=== PATIENT | female | born 1995 | race Caucasian/White ===

== ENCOUNTER 2020-07-23 19:10 | Emergency (ER) | payer MEDICAID ==
[2020-07-23] MEDS ORDERED: Diphtheria,Pertussis(Acell),Tetanus Vaccine 0.5 ML SDV IM ONE (19:28)
[2020-07-23] MEDS ORDERED: Bacitracin Oint 1 GM U/D Packet TOP ONE (19:29)
--- NOTE | 2020-07-23 19:35 | EDM.PDOC ---
ED HPI GENERAL MEDICAL PROBLEM - General Chief Complaint: Laceration Stated Complaint: R FOOT INJURY Time Seen by Provider: 07/23/20 19:29 Source of Information: Reports: Patient History Limitations: Reports: No Limitations - History of Present Illness INITIAL COMMENTS - FREE TEXT/NARRATIVE: pt stepped on a jar and it broke and she ended up with a cut on the bottom of the rt foot. She did have alot of bleeding right after it happened. Onset: Today, Sudden Duration: Hour(s): Location: Reports: Lower Extremity, Right Associated Symptoms: Reports: No Other Symptoms - Related Data Allergies Allergy/AdvReac Type Severity Reaction Status Date / Time No Known Allergies Allergy Verified 05/26/14 17:11 Home Meds: Home Meds Citalopram [Citalopram Hbr] 20 mg PO DAILY 05/26/14 [History] Desogestrel-Ethinyl Estradiol [Isibloom 28 Day Tablet] 1 tab PO DAILY 07/23/20 [History] Prazosin HCl [Prazosin] 1 mg PO DAILY 07/23/20 [History] hydrOXYzine HCL [hydrOXYzine] 25 mg PO ASDIRECTED 07/23/20 [History] Social & Family History - Tobacco Use Smoking Status *Q: Never Smoker - Caffeine Use Caffeine Use: Reports: Coffee, Soda - Recreational Drug Use Recreational Drug Use: No ED ROS GENERAL - Review of Systems Review Of Systems: See Below Constitutional: Reports: No Symptoms HEENT: Reports: No Symptoms Respiratory: Reports: No Symptoms Cardiovascular: Reports: No Symptoms Endocrine: Reports: Polyuria GI/Abdominal: Reports: No Symptoms : Reports: No Symptoms Musculoskeletal: Reports: Other (pt has a 1/2 inch laceration on the bottom of the rt foot. ) Skin: Reports: Other (laceration bottom rt foot. ) Neurological: Reports: No Symptoms ED EXAM, SKIN/RASH Exam: See Below Text/Narrative:: pt arrived with a 1/2 inch laceration to the bottom of the rt foot. This is deep to the subq. She did do a fair amount of bleeding at first. Exam Limited By: No Limitations General Appearance: Alert, Anxious Extremities: Other ( Pt has a 1 inch laceration to the bottom of the rt foot. ) Course - Vital Signs Last Recorded V/S: Last Vital Signs Temp 35.9 C L 09/24/20 19:21 Pulse 96 07/23/20 19:21 Resp 16 07/23/20 19:21 BP 166/104 H 07/23/20 19:21 Pulse Ox 99 07/23/20 19:21 - Orders/Labs/Meds Orders: Active Orders 24 hr Category Date Time Status Vaccines to be Administered [RC] PER UNIT ROUTINE Care 07/23/20 19:28 Active Meds: Medications Discontinued Medications Generic Name Dose Route Start Last Admin Trade Name Latha PRN Reason Stop Dose Admin Bacitracin 1 dose 07/23/20 19:29 07/23/20 19:34 Bacitracin Oint 1 Gm TOP 07/23/20 19:30 1 dose ONETIME ONE Administration Diphtheria/Tetanus/Acell Pertussis 0.5 ml 07/23/20 19:28 07/23/20 19:34 Adacel IM 07/23/20 19:29 0.5 ml .ONCE ONE Administration Lidocaine HCl 5 ml 07/23/20 19:29 07/23/20 19:35 Xylocaine-Mpf 1% INJECT 07/23/20 19:30 5 ml ONETIME ONE Administration - Re-Assessments/Exams Free Text/Narrative Re-Assessment/Exam: 07/23/20 19:54 the wound was cleaned well and infiltrated with lidocaine. The wound was closed with 5-0 prolene. It was dressed with bacatracin . dtap was given Departure - Departure Time of Disposition: 19:50 Disposition: Home, Self-Care 01 Condition: Fair Clinical Impression: Laceration - Discharge Information Referrals: PCP,None [Primary Care Provider] - Forms: ED Department Discharge Care Plan Goals: keep dry, suture removal in 8 days. pt was boostered with a tdap. Sepsis Event Note (ED) - Evaluation Sepsis Screening Result: No Definite Risk - Focused Exam Vital Signs: Vital Signs Temp Pulse Resp BP Pulse Ox 07/23/20 19:21 35.9 C L 96 16 166/104 H 99 07/23/20 19:20 35.9 C L 96 16 166/104 H 99 - My Orders Last 24 Hours: My Active Orders 07/23/20 19:28 Vaccines to be Administered [RC] PER UNIT ROUTINE - Assessment/Plan Last 24 Hours: My Active Orders 07/23/20 19:28 Vaccines to be Administered [RC] PER UNIT ROUTINE
== END 2020-07-23 19:58 | disposition home or self-care (01) ==
LOC: JP.ED 19:10
DX: S91.311A Laceration without foreign body, right foot, initial encounter (principal); Z23 Encounter for immunization; W26.8XXA Contact with other sharp object(s), not elsewhere classified, initial encounter
CPT/HCPCS: 12001; 90471; 90715; 99282; J2001

== ENCOUNTER 2023-03-19 02:46 | Emergency (ER) | payer MEDICAID ==
[2023-03-19 03:13] LABS: HEMATOCRIT 37.6 % (34.3-46.0); MEAN CORPUSCULAR HEMOGLOBIN 29.6 pg (31.6-35.5); MEAN CORPUSCULAR HGB CONC 34.6 g/dL (31.6-35.5); MEAN CORPUSCULAR VOLUME 85.6 fL (81.4-99.0); RED BLOOD CELL COUNT 4.39 M/uL (3.77-5.24); WHITE BLOOD CELL COUNT,WBC 13.2 K/uL (3.2-11.0)
== END 2023-03-19 04:09 | disposition home or self-care (01) ==
LOC: JP.ED 02:46
DX: O20.9 Hemorrhage in early pregnancy, unspecified (principal); O99.281 Endocrine, nutritional and metabolic diseases complicating pregnancy, first trimester; E03.9 Hypothyroidism, unspecified; Z79.899 Other long term (current) drug therapy; Z3A.01 Less than 8 weeks gestation of pregnancy
CPT/HCPCS: 36415; 84702; 85027; 99284

== ENCOUNTER 2023-04-01 21:06 | Emergency (ER) | payer MEDICAID | END 2023-04-01 23:52 | disposition home or self-care (01) | LOC: JP.ED 21:06 | DX: O99.891 Other specified diseases and conditions complicating pregnancy (principal); R60.0 Localized edema; O99.281 Endocrine, nutritional and metabolic diseases complicating pregnancy, first trimester; E03.9 Hypothyroidism, unspecified; Z3A.12 12 weeks gestation of pregnancy; Z79.899 Other long term (current) drug therapy | CPT/HCPCS: 93971-RT; 99283 ==

== ENCOUNTER 2023-10-01 14:31 | Emergency (ER) | payer MEDICAID | END 2023-10-01 16:33 | disposition home or self-care (01) | LOC: JP.ED 14:31 | DX: L03.311 Cellulitis of abdominal wall (principal); E03.9 Hypothyroidism, unspecified; Z79.899 Other long term (current) drug therapy | CPT/HCPCS: 99283 ==

== ENCOUNTER 2025-02-22 19:53 | Emergency (ER) | payer MEDICAID ==
[2025-02-22] MEDS: predniSONE 20 MG Tab PO ONE (20:26)
[2025-02-22] MEDS: Albuterol/Ipratropium 3.0-0.5 MG/3 ML Neb Soln NEB ONE (20:27)
== END 2025-02-22 21:09 | disposition home or self-care (01) ==
LOC: JP.ED 19:53
DX: J06.9 Acute upper respiratory infection, unspecified (principal); E03.9 Hypothyroidism, unspecified; Z79.890 Hormone replacement therapy; Z79.899 Other long term (current) drug therapy
CPT/HCPCS: 71046; 87428; 94640; 99284; J7512; J7620; A9270-GY